=== PATIENT | female | born 1960 | race Caucasian/White ===

== ENCOUNTER 2021-06-04 08:59 | Outpatient (CLI) | payer BC | END 2021-06-04 09:00 | disposition home or self-care (01) | LOC: BICMAMMO 08:59 | PROVIDERS: ATTEND Nurse Practitioner Family | DX: Z12.31 Encounter for screening mammogram for malignant neoplasm of breast (principal); Z80.3 Family history of malignant neoplasm of breast | CPT/HCPCS: 77063; 77067 ==

== ENCOUNTER 2024-05-11 07:05 | Outpatient (CLI) | payer BC ==
[2024-05-11] MEDS ORDERED: GASTROGRAFIN 30 ML BOT ONE (07:08)
[2024-05-11] MEDS ORDERED: Iopamidol 370 76% 100 ML VIAL ONE (07:08)
== END 2024-05-11 07:06 | disposition home or self-care (01) ==
LOC: CT 07:05
PROVIDERS: ATTEND Internal Medicine Gastroenterology
DX: R10.13 Epigastric pain (principal); R10.11 Right upper quadrant pain
CPT/HCPCS: 36415; 74177; 82565